=== PATIENT | male | born 1960 ===

== ENCOUNTER 2017-05-27 07:49 | Observation (INO) | payer MEDICARE ==
[2017-05-27 08:05] VITALS: PULSE 60; TEMP 98.2
[2017-05-27 08:48] LABS: BASO # 0.03 K/mm3 (0.0-2.0); BASO % 0.4 % (0.0-3.0); EOS # 0.2 (0.0-0.7); EOS % 1.8 % (1.5-5.0); GRAN # 5.6 (1.4-6.5); GRAN % 66.8 % (50.0-68.0); HEMATOCRIT 40.5 % (42.0-52.0); LYMPH # 2.1 (1.2-3.4); LYMPH % 25.3 % (22.0-35.0); MEAN CELL VOLUME 96.2 fl (80.0-105.0); MEAN CORPUSCULAR HEMOGLOBIN 32.8 pg (25.0-35.0); MEAN CORPUSCULAR HGB CONC 34.1 g/dl (31.0-37.0); MEAN PLATELET VOLUME 9.6 fl (7.0-11.0); MONO # 0.5 (0.1-0.6); MONO % 5.7 % (1.0-6.0); RED CELL DISTRIBUTION WIDTH 14.1 % (11.5-14.5); WHITE BLOOD COUNT 8.4 10^3/ul (4.5-11.0)
[2017-05-27 08:57] LABS: ALB/GLOB RATIO 1.2 (1.1-1.8); ALKALINE PHOSPHATASE 54 U/L (38-126); ALT/SGPT 27 U/L (7-56); AST/SGOT 23 U/L (17-59); BILIRUBIN,TOTAL 0.7 mg/dL (0.2-1.3); BLOOD UREA NITROGEN 20 mg/dL (7-21); CALCIUM 9.8 mg/dL (8.4-10.5); CARBON DIOXIDE 27 mmol/L (21-33); CHLORIDE 104 mmol/L (98-107); GFR AFRICAN-AMERICAN > 60; GLUCOSE,RANDOM 71 mg/dL (70-110); MAGNESIUM 1.7 mg/dL (1.7-2.2); POTASSIUM 3.9 mmol/L (3.6-5.0); SODIUM 140 mmol/L (132-148); TOTAL PROTEIN 7.7 g/dL (5.8-8.3)
[2017-05-27 08:59] LABS: INR 1.09 (0.93-1.08); PARTIAL THROMBOPLASTIN TIME 31.4 Seconds (25.1-36.5)
--- NOTE | 2017-05-27 09:00 | ED PDOC ---
Arrival/HPI - General Chief Complaint: Chest Pain Time Seen by Provider: 05/27/17 08:16 Historian: Patient - History of Present Illness Narrative History of Present Illness (Text): 05/27/17 08:59 A 57 year old male, whose past medical history includes pacemaker, Hepatitis C, diverticulitis, and hypothyroidism, presents to the emergency department complaining of intermittent left-sided chest pain since this morning. He also notes that he was using a hammer for housework and smoking marijuana yesterday. Pain is not associated with movement. He says it hurts intermittently and feels like a pressure. The patent denies fevers, chills, headache, dizziness, chest pain, shortness of breath, dyspnea on exertion, cough, abdominal pain, nausea, vomiting, diarrhea, back pain, neck pain, urinary/bowel changes, or any other complaint. PMD: Dr. Wilkins Inspector Repairer: Dr. Mercedes Time/Duration: Other (This Morning) Symptom Onset: Sudden Symptom Course: Unchanged Activities at Onset: Rest, Light Context: Home Past Medical History - Provider Review Nursing Documentation Reviewed: Yes - Infectious Disease Hx of Infectious Diseases: None - Tetanus Immunization Tetanus Immunization: Unknown - Cardiac Hx Pacemaker: Yes - Neurological Hx Paralysis: No - Endocrine/Metabolic Hx Hypothyroidism: Yes - Hematological/Oncological Hx Hepatitis C: Yes - Musculoskeletal/Rheumatological Hx Back Pain: Yes - Gastrointestinal Hx Diverticulitis: Yes - Psychiatric Hx Substance Use: Yes - Past Surgical History Past Surgical History: No Previous - Anesthesia Hx Anesthesia Reactions: No Hx Malignant Hyperthermia: No - Suicidal Assessment Feels Threatened In Home Enviroment: No Family/Social History - Physician Review Nursing Documentation Reviewed: Yes Family/Social History: No Known Family HX Smoking Status: Light Smoker < 10 Cigarettes Daily Hx Alcohol Use: Yes Hx Substance Use: Yes Hx Substance Use Treatment: Yes (MARIJUANA) Allergies/Home Meds Allergies/Adverse Reactions: Allergies No Known Allergies Allergy (Verified 05/27/17 07:58) Home Medications: Home Meds Medication Instructions Recorded Confirmed Aspirin [Aspirin Chewable] 81 mg PO DAILY 04/24/13 05/27/17 Levothyroxine [Synthroid] 150 mcg PO DAILY 05/27/17 05/27/17 Review of Systems - Physician Review All systems were reviewed & negative as marked: Yes - Review of Systems Constitutional: absent: Fevers, Night Sweats Respiratory: absent: SOB, Cough Cardiovascular: Chest Pain (Left- sided chest pain ). absent: BAIN Gastrointestinal: absent: Abdominal Pain, Stool Changes, Diarrhea, Nausea, Vomiting Genitourinary Male: absent: Urinary Output Changes Musculoskeletal: absent: Back Pain, Neck Pain Neurological: absent: Headache, Dizziness Physical Exam Vital Signs Reviewed: Yes Vital Signs Temp Pulse Pulse Resp BP BP Pulse Ox 05/27/17 08:26 60 113/76 05/27/17 08:03 98.2 F 60 12 113/74 100 Temperature: Afebrile Blood Pressure: Normal Pulse: Regular Respiratory Rate: Normal Appearance: Positive for: Well-Appearing, Non-Toxic, Comfortable Pain Distress: None Mental Status: Positive for: Alert and Oriented X 3 - Systems Exam Head: Present: Atraumatic, Normocephalic Pupils: Present: PERRL Extroacular Muscles: Present: EOMI Conjunctiva: Present: Normal Mouth: Present: Moist Mucous Membranes Neck: Present: Normal Range of Motion Respiratory/Chest: Present: Clear to Auscultation, Good Air Exchange. No: Respiratory Distress, Accessory Muscle Use Cardiovascular: Present: Regular Rate and Rhythm, Normal S1, S2. No: Murmurs Abdomen: Present: Normal Bowel Sounds. No: Tenderness, Distention, Peritoneal Signs Back: Present: Normal Inspection Upper Extremity: Present: Normal Inspection. No: Cyanosis, Edema Lower Extremity: Present: Normal Inspection. No: Edema Neurological: Present: GCS=15, CN II-XII Intact, Speech Normal Skin: Present: Warm, Dry, Normal Color. No: Rashes Psychiatric: Present: Alert, Oriented x 3, Normal Insight, Normal Concentration Medical Decision Making ED Course and Treatment: 05/27/17 09:06 Impression: A 57 year old male presents to the emergency department with a complaint of left sided chest pain. Differential Diagnosis included but are not limited to: Rule out ACS vs. musculoskeletal. Plan: -- EKG -- Chest X-ray -- Aspirin -- Reassess and disposition Prior Visits: Notes and results from previous visits were reviewed. Patient was last seen in the emergency department on 02/10/14. The patient was seen in the emergency department with a complaint of left lower quadrant abdominal pain, nausea, and vomiting. The patient was discharged home. Progress Notes: EKG: Ordered, reviewed, and independently interpreted the EKG. Rate : 60 BPM Rhythm : Paced Rhythm 05/27/17 10:06 Patient currently is not having any more chest pain. His troponin is negative. CXR negative for PNA. EKG reviewed. Case discussed with Dr. Stephanie Gracia who will place the patient on telemetry observation. Consult placed for Dr. Mercedes. - Lab Interpretations Lab Results: 05/27/17 08:25 05/27/17 08:25 Lab Results 05/27/17 08:25: Sodium 140, Potassium 3.9, Chloride 104, Carbon Dioxide 27, Anion Gap 13, BUN 20, Creatinine 0.6 L, Est GFR ( Amer) > 60, Est GFR ( Non-Af Amer) > 60, Random Glucose 71, Calcium 9.8, Magnesium 1.7, Total Bilirubin 0.7, AST 23, ALT 27, Alkaline Phosphatase 54, Lactate Dehydrogenase 391, Total Creatine Kinase 66, Troponin I < 0.01, Total Protein 7.7, Albumin 4.1 , Globulin 3.6, Albumin/Globulin Ratio 1.2 05/27/17 08:25: PT 12.0, INR 1.09 H, APTT 31.4 05/27/17 08:25: WBC 8.4, RBC 4.21, Hgb 13.8 L, Hct 40.5 L, MCV 96.2, MCH 32.8, MCHC 34.1, RDW 14.1, Plt Count 240, MPV 9.6, Gran % 66.8, Lymph % (Auto) 25.3, Towner % (Auto) 5.7, Eos % (Auto) 1.8, Baso % (Auto) 0.4, Gran # 5.60, Lymph # 2.1 , Towner # 0.5, Eos # 0.2, Baso # 0.03 I have reviewed the lab results: Yes - RAD Interpretation Radiology Orders: 05/27/17 08:27 CHEST PORTABLE [RAD] Stat - EKG Interpretation Interpreted by ED Physician: Yes Type: 12 lead EKG - Medication Orders Current Medication Orders: Discontinued Medications Aspirin (Ecotrin) 162 mg PO STAT STA Stop: 05/27/17 08:27 Last Admin: 05/27/17 08:47 Dose: 162 mg - Scribe Statement The provider has reviewed the documentation as recorded by the Milton Shi Provider Scribe Attestation: All medical record entries made by the Scribe were at my direction and personally dictated by me. I have reviewed the chart and agree that the record accurately reflects my personal performance of the history, physical exam, medical decision making, and the department course for this patient. I have also personally directed, reviewed, and agree with the discharge instructions and disposition. Disposition/Present on Arrival - Present on Arrival Any Indicators Present on Arrival: No History of DVT/PE: No History of Uncontrolled Diabetes: No Urinary Catheter: No History of Decub. Ulcer: No History Surgical Site Infection Following: None - Disposition Have Diagnosis and Disposition been Completed?: Yes Diagnosis: Chest pain Disposition: HOSPITALIZED Disposition Time: 10:07 Patient Plan: Observation Condition: FAIR Discharge Instructions (ExitCare): Chest Pain (ED) Referrals: Alfredo Wilkins MD [Primary Care Provider] - Follow up with primary Forms: [employer] (Iraqi)
[2017-05-27 09:08] LABS: TROPONIN I < 0.01 ng/mL
[2017-05-27 10:39] VITALS: RESP 18; O2SAT 98
[2017-05-27] MEDS ORDERED: Levothyroxine 150 MCG TAB PO SCH (12:15)
--- NOTE | 2017-05-27 13:10 | RAD ---
HISTORY: chest pain COMPARISON: No prior. FINDINGS: LUNGS: No active pulmonary disease. PLEURA: No significant pleural effusion identified, no pneumothorax apparent. CARDIOVASCULAR: Normal. OSSEOUS STRUCTURES: No significant abnormalities. VISUALIZED UPPER ABDOMEN: Normal. OTHER FINDINGS: Dual lead pacemaker IMPRESSION: No active disease.
--- NOTE | 2017-05-27 13:29 | CP.PCM.HP ---
<Lloyd Daly - Last Filed: 05/27/17 15:45> History of Present Illness - History of Present Illness History of Present Illness: Chief Complaint: Chest pain HPI: Patient is a 57 year old male with a past medical history of non-ischemic cardiomyopathy, diverticulitis, hypothyroidism, bradycardia s/p pacemaker in 2010, and treated hepatitis C. Patient states this morning he woke up feeling fine and continued with his normal routine. later in the morning however when conversing with his friends he states he experienced an episode of chest pain which lasted only a second. Rated the pain a 3/10, describing it as dull and non radiating. The chest pain did not have any exacerbating or relieving factors nor was it reproducible. There was no associated dizziness, nausea, vomiting, shortness of breath, or fatigue associated with the chest pain. States he has experienced this chest pain in the past however it is normally associated with exercising such as push ups. Endorses following up with his nurse practitioner physician assistant three weeks prior regarding pain; states that nurse practitioner physician assistant believes it is most likely muscular in etiology. Patient denies ever having a dizziness or syncopal episode associated with his chest pain. PMD: Dr. Alfredo Wilkins Call Center Dispatcher: Dr. Mercedes Allergies: NKDA PMH: divertulitis, hypothyroidism, bradycardia s/p pacemaker in 2010, and treated hepatitis C Past procedures: colonoscopy, left heart catheterization- revealed normal coronaries, mildly decreased function with an ejection fraction of 50%, stress test revealed; partially reversible anterior and apical defects with normal wall motion of the left ventricle. Pacemaker in 2010 in [place] Family History:Hypothyroidism, Colon cancer in grandmother, father- CABG, denies family history of ME Social History: construction representative, now on disability. States he smokes about 1 pack of cigarettes a day for over 30 years, admits to drinking on occasion every few months, denies illicit drug use. Present on Admission - Present on Admission Any Indicators Present on Admission: No Review of Systems - Constitutional Constitutional: absent: Chills, Fever - EENT Eyes: absent: Blind Spots, Blurred Vision - Cardiovascular Cardiovascular: Chest Pain (resolved). absent: Chest Pain at Rest, Dyspnea, Palpitations - Respiratory Respiratory: absent: Cough, Dyspnea - Gastrointestinal Gastrointestinal: absent: Abdominal Pain, Nausea, Vomiting - Genitourinary Genitourinary: absent: Change in Urinary Stream, Dysuria - Neurological Neurological: absent: Dizziness, Numbness - Psychiatric Psychiatric: absent: Anxiety - Hematologic/Lymphatic Hematologic: absent: Easy Bleeding, Easy Bruising Past Patient History - Infectious Disease Hx of Infectious Diseases: None - Tetanus Immunizations Tetanus Immunization: Unknown - Past Social History Smoking Status: Light Smoker < 10 Cigarettes Daily - CARDIAC Hx Pacemaker: Yes - NEUROLOGICAL Hx Paralysis: No - ENDOCRINE/METABOLIC Hx Hypothyroidism: Yes - HEMATOLOGICAL/ONCOLOGICAL Hx Hepatitis C: Yes - MUSCULOSKELETAL/RHEUMATOLOGICAL Hx Back Pain: Yes - GASTROINTESTINAL Hx Diverticulitis: Yes - PSYCHIATRIC Hx Substance Use: Yes - SURGICAL HISTORY Hx Surgeries: No - ANESTHESIA Hx Anesthesia Reactions: No Hx Malignant Hyperthermia: No Meds Allergies/Adverse Reactions: Allergies Allergy/AdvReac Type Severity Reaction Status Date / Time No Known Allergies Allergy Verified 05/27/17 14:16 Physical Exam - Constitutional Appears: Non-toxic, No Acute Distress - Head Exam Head Exam: ATRAUMATIC, NORMAL INSPECTION, NORMOCEPHALIC - Eye Exam Eye Exam: EOMI, Normal appearance - ENT Exam ENT Exam: Mucous Membranes Moist, Normal Exam - Respiratory Exam Respiratory Exam: Clear to Auscultation Bilateral, NORMAL BREATHING PATTERN. absent: Wheezes - Cardiovascular Exam Cardiovascular Exam: REGULAR RHYTHM, +S1, +S2 - GI/Abdominal Exam GI & Abdominal Exam: Normal Bowel Sounds, Soft - Extremities Exam Extremities exam: Positive for: normal inspection - Back Exam Back exam: NORMAL INSPECTION - Neurological Exam Neurological exam: Alert, CN II-XII Intact, Oriented x3 - Psychiatric Exam Psychiatric exam: Normal Affect, Normal Mood - Skin Skin Exam: Intact, Normal Color, Warm Results - Vital Signs Recent Vital Signs: Last Vital Signs Temp 98.2 F 05/27/17 08:03 Pulse 60 05/27/17 12:47 Resp 18 05/27/17 12:47 BP 120/78 05/27/17 12:47 Pulse Ox 98 05/27/17 12:47 - Labs Result Diagrams: 05/27/17 08:25 05/27/17 08:25 Assessment & Plan - Assessment and Plan (Free Text) Assessment: 57 year old male with a past medical history of hypothyroidism, pacemaker, and diverticulitis presenting with chest pain. Plan: 1. Chest pain due to muscular strain vs stable angina R/o ACS - EKG; paced rhythm; check repeat EKG - Chest X-ray; no active disease - Troponin negative x 2, continue to monitor series - Lipid panel ordered; results pending - HgbA1c ordered; results pending - Echocardiogram ordered; results pending - Continue home medications aspirin and synthroid - Patient given naproxen 550 mg BID as per cardiology - heart healthy diet ordered 2. Hypothyroidism - TSH ordered; results pending - Continue with home medication Synthroid DVT/GI prophylaxis: heparin/protonix <Aakash Gracia - Last Filed: 05/27/17 16:47> Results - Vital Signs Recent Vital Signs: Last Vital Signs Temp 98.2 F 05/27/17 08:03 Pulse 60 05/27/17 14:39 Resp 18 05/27/17 14:39 BP 109/74 05/27/17 14:39 Pulse Ox 98 05/27/17 14:39 - Labs Result Diagrams: 05/27/17 08:25 05/27/17 08:25 Labs: Laboratory Results - last 24 hr 05/27/17 14:27 Troponin I < 0.01 Attending/Attestation - Attestation I have personally seen and examined this patient.: Yes I have fully participated in the care of the patient.: Yes I have reviewed all pertinent clinical information: Yes Notes (Text): I have seen and examined the patient at bedside. Agree with the above note with the following additions/ exceptions: Briefly this is 57 year old male with history of non-ischemic cardiomyopathy, diverticulitis, hypothyroidism, bradycardia s/p pacemaker in 2010, and treated hepatitis C came for evaluation of non specific chest pain which lasted for few seconds. EKG and troponin negative. He has abnormal stress test in 2016 and underwent cardiac cath which was non obstructive. Cardiology cleared the patient for discharge. Patient was started on naproxen. Echo will be done as an outpatient. Upon discharge patient will follow up with Dr Wilkins. Dr Aakash Gracia
--- NOTE | 2017-05-27 14:51 | CON ---
DATE: 05/27/2017 LOCATION: The patient is in Emergency Room, bed 5. REASON FOR CONSULTATION: Chest pain. HISTORY OF PRESENT ILLNESS: A 57-year-old male who known to have a pacemaker inserted, hepatitis C, diverticulitis, hypothyroidism admitted to the hospital he states that he has a chest pain, which is intermittent and it last only less than a minute. It is sharp pain and it is on the left chest and it also happen when he try to put and hammer the nails or he does certain movement with the arms then he feels this sharp pain. It has no relation with exertion. Denies any palpitation. Denies any shortness of breath. Denies any nausea or vomiting. PAST MEDICAL HISTORY: Positive for pacemaker insertion in 2010, [employer] pacemaker was put in [place] and he follows for pacemaker followup at [facility] and with the last check up the pacemaker was looking fine, history of hypothyroidism, hepatitis C, and diverticulitis in the past. PERSONAL HISTORY: Drinks beer socially. Smokes about half pack a day. The patient also smokes marijuana. ALLERGIES: THE PATIENT DENIES ANY ALLERGIES. FAMILY HISTORY: Father had CAD. HOME MEDICATIONS: The patient was taking aspirin 81 mg daily and Synthroid 150 mcg p.o. daily. REVIEW OF SYSTEMS: All the system reviewed positive mentioned in the history otherwise negative. PHYSICAL EXAMINATION: VITAL SIGNS: Blood pressure 120/78, respirations 18, pulse 60, and temperature 98.2. HEENT: Head is normocephalic. Eyes; pupils are normal. Conjunctivae are normal. Nose and throat are normal. NECK: JVP low. Carotids are equal. THORAX: AP diameter normal. LUNGS: Clear. CARDIOVASCULAR: S1 and S2. ABDOMEN: Soft. No tenderness. No organomegaly. Bowel sounds are normal. EXTREMITIES: No clubbing. No cyanosis. LABORATORY DATA: WBC 8.4, hemoglobin 13.8, hematocrit 40.5, and platelets 240. Sodium 140, potassium 3.9, BUN 20, and creatinine 0.6. Magnesium, calcium, AST, ALT, troponin, total protein, and albumin normal. PT 12.0, INR 1.09, and PTT 31.4. EKG showed regular sinus rhythm. DIAGNOSES: Chest pain probably musculoskeletal, hypothyroidism, status post pacemaker insertion, history of diverticulitis, and hepatitis C. PLAN: The patient states that he walks half an hour and he does other exercises and on doing exercise or walking he does not get any chest pain and this pain, which he is getting started when he did lot of heavy work, putting nail in the wall and hammering. My impression is probably musculoskeletal pain. We will add Naproxen to therapy. The patient already on aspirin 81 mg daily, heparin 5000 units subcutaneous q.12 hours has been ordered, Protonix 40 mg IV q.12 hours has been ordered, and Synthroid 150 mcg p.o. daily. We will check lipid profile and TSH. Told the patient to stop smoking cigarettes and marijuana and also beer and we will follow with you. Arturo Mercedes MD
[2017-05-27 15:08] VITALS: BP 109/74
--- NOTE | 2017-05-27 17:06 | CARD ---
APPROVED REPORT EKG Measurement Heart [id number] <Conclusion> Electronic atrial pacemaker
[2017-05-27 17:07] VITALS: BMI 28.1
[2017-05-27] MEDS ORDERED: Influenza Vaccine 60 mcg/0.5 mL SYR (4YR UP) IM ONE (17:07)
[2017-05-27] MEDS ORDERED: Pneumococcal 23-Valent Vaccine IM ONE (17:07)
[2017-05-27] MEDS ORDERED: Naproxen 550 mg Tab PO SCH (18:00)
--- NOTE | 2017-05-27 18:33 | PN ---
DATE: 05/27/2017 ADDENDUM The patient is in emergency room, in bed 5. I saw this patient on consult and this is an addendum. The patient because of the chest pain, which acting as musculoskeletal. In my consult, I forgot to mention that the patient had an echo on 11/02/2014, it was normal chamber size, normal LV function, mild mitral regurgitation, mild tricuspid regurgitation, and RVSP 35 mmHg. The patient had stress test on 11/02/2014, which showed anteroapical ischemia. Due to abnormal stress test, the patient had cardiac catheterization on 12/11/2014 and it showed normal coronaries, ejection fraction about 50%, EDP 12. So, the patient had cardiac workup in the past due to abnormal stress test and now the patient's pain is atypical, clinically it is a musculoskeletal pain. So, at this moment, we will treat him symptomatically and no further cardiac workup is planned at this moment. Arturo Mercedes MD
== END 2017-05-27 17:20 | disposition home or self-care (01) ==
LOC: ED 07:49 → ERH 10:07 → 3RSO 14:56
PROVIDERS: ADMIT Hospitalist; ATTEND Hospitalist
DX: R07.89 Other chest pain (principal); B19.20 Unspecified viral hepatitis C without hepatic coma; E03.9 Hypothyroidism, unspecified; F12.90 Cannabis use, unspecified, uncomplicated; F17.210 Nicotine dependence, cigarettes, uncomplicated; I08.1 Rheumatic disorders of both mitral and tricuspid valves; I42.9 Cardiomyopathy, unspecified; K57.92 Diverticulitis of intestine, part unspecified, without perforation or abscess without bleeding; Z79.82 Long term (current) use of aspirin; Z80.0 Family history of malignant neoplasm of digestive organs; Z82.49 Family history of ischemic heart disease and other diseases of the circulatory system; Z95.0 Presence of cardiac pacemaker; R40.2412 Glasgow coma scale score 13-15, at arrival to emergency department
CPT/HCPCS: 71010; 80053; 82550; 83036; 83615; 83735; 84443; 84484; 85025; 85610; 85730; 93005; 96372; 96374; 99285; C9113; G0378; J1644

== ENCOUNTER 2018-07-08 14:36 | Outpatient (CLI) | payer MEDICARE | END 2018-07-08 14:37 | disposition home or self-care (01) | LOC: CARDIO 14:36 ==

== ENCOUNTER 2018-08-25 13:13 | Outpatient (CLI) | payer MEDICARE, MEDICAID | END 2018-08-25 13:14 | disposition home or self-care (01) | LOC: RAD 13:13 ==

== ENCOUNTER 2018-09-20 09:55 | Outpatient (CLI) | payer MEDICARE, MEDICAID | END 2018-09-20 09:56 | disposition home or self-care (01) | LOC: RAD 09:55 ==